=== PATIENT | female | born 1990 | race Caucasian/White ===

== ENCOUNTER 2021-10-12 00:14 | Observation (INO) | payer OTHER, SELFPAY ==
--- NOTE | ~2021-10-12 | CT_ITS ---
EXAMINATION: CT abdomen pelvis w con DATE: 10/12/2021 02:43 INDICATION: Right lower quadrant pain with nausea, vomiting and diarrhea TECHNIQUE: Computed tomography (CT) of the abdomen and pelvis was performed with 100 cc Omnipaque 350 intravenous contrast. The dose-length product was 251.06 mGy-cm. Automated exposure control and iter ative reconstruction technique were employed. COMPARISON: None. FINDINGS: Lung bases unremarkable. Heart size normal. No pleural or pericardial effusion. No signific ant vascular abnormality. No lymphadenopathy. Nonobstructive bowel gas pattern. There is a blind-endi ng tubular structure right lower quadrant measuring up to 1 cm, suspicious although not diagnostic fo r acute appendicitis. There is not significant surrounding periappendiceal inflammation, although easton luation limited due to lack of significant surrounding fat. Correlate clinically. The bladder is dist ended. No acute osseous abnormality. IMPRESSION: 1. Blind-ending tubular structure right lower abdomen measuring up to 1 cm, indeterminate for acute a ppendicitis. Correlate clinically. Reviewed, dictated and finalized at location A. [employer] IMPRESSION: 1. Blind-ending tubular structure right lower abdomen measuring up to 1 cm, ind eterminate for acute appendicitis. Correlate clinically.
[2021-10-12 00:21] VITALS: BP 133/83; PULSE 123; RESP 17; TEMP 36.5; O2SAT 96
[2021-10-12 01:34] LABS: Basophils Absolute Auto 0.1 K/mm3 (0.0-0.1); Basophils Percent Auto 0.4 % (0.2-1.2); Eosinophils Absolute Auto 0.1 K/mm3 (0-0.3); Eosinophils Percent Auto 0.7 % (0-4.4); Hematocrit 39.7 % (37.0-47.0); Hemoglobin 13.8 g/dL (12.0-15.0); Immature Granulocyte Absolute 0.05 K/mm3 (0.00-0.031); Immature Granulocyte Percent A 0.4 % (0-0.5); Lymphocytes Absolute Auto 1.47 K/mm3 (0.9-3.2); Lymphocytes Percent Auto 12.6 % (18.3-44.2); Mean Corpuscular HGB Conc 34.8 g/dl (32-36); Mean Corpuscular Hemoglobin 31.3 pg (26-34); Monocytes Absolute Auto 0.9 K/mm3 (0.1-0.6); Monocytes Percent Auto 7.6 % (2.6-8.5); Neutrophils Absolute Auto 9.1 K/mm3 (1.3-6.7); Neutrophils Percent Auto 78.3 % (45.5-73.1); Platelet Count Result 179 k/mm3 (150-375); Red Blood Count 4.41 M/mm3 (4.2-5.4); Red Cell Distribution Width 11.8 % (11.5-14.5); White Blood Count 11.7 K/mm3 (4.5-10.0)
[2021-10-12 01:45] LABS: Alanine Aminotransferase 26 U/L (4-35); Alkaline Phosphatase 72 U/L (38-126); Anion Gap 6 mmol/L (8-16); Aspartate Amino Transferase 32 U/L (14-36); Bilirubin,Total 0.8 mg/dL (0.2-1.3); Blood Urea Nitrogen 17 mg/dL (7-17); Calcium 9.9 mg/dL (8.4-10.2); Carbon Dioxide 28 mmol/L (22-30); Chloride 100 mmol/L (98-107); Estimated CRCL calculation 81 ml/min; Estimated Glomerular Filt Rate > 60; Glucose 109 mg/dL (65-110); Lipase 101 U/L (23-300); Potassium 3.5 mmol/L (3.4-5.0); Sodium 134 mmol/L (137-145)
[2021-10-12] MEDS: ONDANSETRON INJ 4 MG/2 ML VIAL IV PUSH ×4 (01:49→14:57)
[2021-10-12] MEDS: SODIUM CHLORIDE 0.9% IV 1,000 ML 999 ML IV CONT ×2 (01:49→03:26)
--- NOTE | 2021-10-12 01:52 | ED.ABDPAIN ---
HPI - Abdominal Pain General Chief Complaint: Abdominal Pain Stated Complaint: abd pain, n/v Time Seen by Provider: 10/12/21 01:42 Source: patient and family History of Present Illness HPI narrative: 31-year-old female presented emerge department for evaluation of lower abdominal pain with associated nausea vomiting and diarrhea. Patient states symptoms started approximately 9 PM tonight. Patient denies any prior history of abdominal surgeries. Patient denies any prior history of ovarian cyst. Related Data Home Medications Medication Instructions Recorded Confirmed docosahexaenoic acid [ DHA] 1 tablet PO DAILY 06/10/21 10/12/21 Allergies Allergy/AdvReac Type Severity Reaction Status Date / Time amoxicillin Allergy Severe Hives Verified 10/12/21 01:27 erythromycin base Allergy Severe STOPS Verified 10/12/21 01:27 BREATHING Penicillins Allergy Mild RASH Verified 10/12/21 01:27 Review of Systems Review of Systems: APPEARANCE: Ill-appearing HEAD: normocephalic, atraumatic. EYES: PERRLA/EOMI, conjunctivae clear. NECK: Supple. No adenopathy, no masses. RESPIRATORY: Airway patent, respirations nonlabored. Clear to auscultation bilaterally, no rales, rhonchi, wheezing. CARDIOVASCULAR: Regular rate and rhythm without murmurs rubs or gallops. ABDOMINAL: Right lower quadrant pain MUSCULOSKELETAL: Moves all extremities. Strength/ROM intact, No edema, No calf tenderness. NEURO: Alert. Cranial nerves II through XII intact. SKIN: Warm, dry. Normal Color PSYCHIATRIC: Normal affect/mood. [facility] Past Medical History Medical History (Updated 10/12/21 @ 03:46 by Garry Trejo MD) Encounter to establish care GERD (gastroesophageal reflux disease) Hx of gastric ulcer Rash and nonspecific skin eruption Weight loss Wellness examination Surgical History Surgical History (Updated 06/10/21 @ 15:05 by Roel Becerra CMA) Hx of adenoidectomy Family History Family History Father Hypertension Mother Asthma Sibling Asthma Grandparent Asthma Lung cancer Grandparent Diabetes mellitus Social History Social History (Updated 06/10/21 @ 14:57 by Roel Becerra CMA) Smoking status: Never smoker Alcohol intake: never Drinks per week: 2 Alcohol use details: 1-2 beers per week Substance use: never Spiritual care concerns: No Exam Narrative: APPEARANCE: Ill-appearing HEAD: normocephalic, atraumatic. EYES: PERRLA/EOMI, conjunctivae clear. NOSE: Normal no drainage RESPIRATORY: Airway patent, respirations nonlabored. Clear to auscultation bilaterally, no rales, rhonchi, wheezing. CARDIOVASCULAR: Regular rate and rhythm without murmurs rubs or gallops. ABDOMINAL: Right lower quadrant tenderness to palpation MUSCULOSKELETAL: Moves all extremities. Strength/ROM intact, No edema, No calf tenderness. NEURO: Alert. Cranial nerves II through XII intact. SKIN: Warm, dry. Normal Color Course Course Emergency Course: Surgery was consulted due to the finding of acute appendicitis. Patient was started on antibiotics. Patient and family were updated on the results of the labs and imaging and plan for admission with anticipated surgery. All questions and concerns were addressed. Patient was in no distress at time of admission. Consultations Consultation #1: Dr Vidales was consulted. Dr. Vidales also did request a Zosyn to be administered. Unfortunately patient does have allergies to amoxicillin penicillins and erythromycin. Patient was started on Clinda and gentamicin. Date: 10/12/21 Time: 03:14 Vital Signs Vital signs: Vital Signs Temperature 97.7 F 10/12/21 00:21 Pulse Rate 123 H 10/12/21 00:21 Respiratory Rate 17 10/12/21 00:21 Blood Pressure 133/83 10/12/21 00:21 Pulse Oximetry 96 10/12/21 00:21 Temperature 97.9 F 10/12/21 05:47 Pulse Rate 90 10/12/21 05:47 Respiratory Rate 18 10/12/21 05:47 Blood Pressu
[2021-10-12 01:56] LABS: Add Urine Microscopic? YES; Amorphous Sediment Urine Few; Appearance Urine Cloudy (Clear); Bilirubin Urine Negative (Negative); Blood Urine Negative (Negative); Color Urine Yellow (Yellow); Glucose Urine UA Negative (Negative); Ketones Urine 1+ mg/dL (Negative); Leukocyte Esterase Ur Negative LEU/UL (Negative); Nitrate Urine Negative (Negative); Protein Urine 1+ mg/dL (Negative); Specific Grav Ur 1.018 (1.001-1.035); Urobilinogen Urine Negative mg/dL (<2.0)
[2021-10-12] MEDS: HYDROmorphone HCL INJ (*CRX) 1 MG/ML SYR 0.5 MG IV PUSH ×3 (01:58→08:47)
--- NOTE | 2021-10-12 02:19 | PC.NURSE ---
Patient taken to ct.
[2021-10-12] MEDS: CLINDAMYCIN 900 MG/D5W 50 ML 900 MG/50 ML PIGGYBACK 50 MG IVPB (04:08)
[2021-10-12 04:56] LABS: SARS-CoV-2 RNA PCR Negative
[2021-10-12 05:12] VITALS: BP 107/74; PULSE 97; RESP 18; TEMP 37.1; O2SAT 100
[2021-10-12] MEDS: SODIUM CHLORIDE 0.9% IV 1,000 ML 125 ML IV CONT ×3 (05:24→20:54)
--- NOTE | 2021-10-12 05:26 | ADMGEN ---
This patient, Mayte Garcia, was admitted to 2 Medical Room 261-01. Patient/family oriented to hospital policies and general routines including ID bracelet, bed and alarms, visiting hours, pain management, procedures, bathroom and other care routines, personal items, smoking policy, room service/diet, and visiting hours. Information on how to activate the Rapid Response Team has been discussed. Patient/Family are encouraged to report perceived risks to care and to ask questions if they do not understand what they are told or what they should do.
[2021-10-12 05:46] VITALS: BMI 19.8
[2021-10-12 05:47] VITALS: BP 104/69; PULSE 90; RESP 18; TEMP 36.6; O2SAT 100
--- NOTE | 2021-10-12 10:20 | PM.IMHP ---
H&P: HPI History of Present Illness Date/Time: 10/12/21 09:20 This is a pleasant 31-year-old white female who presented to the emergency department at [place] last evening for evaluation of lower abdominal pain with associated nausea, vomiting. and diarrhea. Patient states symptoms started approximately 9 PM that night. she states that earlier in the day she ate a normal breakfast of been an on a muffin. At lunch she still had an appetite and ate some healthy popcorn. Then immediately after eating her supper around 7 or 8:00 p.m. she began having lower abdominal pain mainly centered at her umbilicus and below that. She had 1 episode of loose stools in the late afternoon and then gradually became more more nauseated through the evening and then decided to come the emergency room around midnight. Patient has a [id number] at home that she donor delivered by normal vaginal delivery and she has not had other abdominal problems. She took her temperature at home that was not running a fever. She also was not run a fever in the ED. further history now is that she has had 3 rounds of Zofran and IV Dilaudid for the pain and it seems to come back after the medicine wears off. She has not had further loose stools since she arrived at the hospital. Patient denies any prior history of abdominal surgeries. Patient denies any prior history of ovarian cyst. Chief Complaint: lower abdominal pain Review of Systems Review of Systems: All systems reviewed & are unremarkable except as noted in HPI and below Constitutional: Constitutional: Reports as per HPI, Denies chills, Denies fever(s) and Reports malaise Eyes: Eyes: Reports no additional eye complaints ENT: Reports Normal hearing present and Denies dizziness Cardiovascular: Cardiovascular: Reports no additional cardiovascular complaints, Denies chest pain and Denies irregular heart rhythm Respiratory: Respiratory: Reports no additional respiratory complaints Gastrointestinal: Gastrointestinal: Reports abdominal pain ( mild, at and below the umbilicus), Denies bloating, Denies heartburn and Reports nausea Genitourinary: Genitourinary: Reports no additional female genitourinary complaints and Denies hematuria Musculoskeletal: Musculoskeletal: Denies back pain Integumentary/Breasts: Skin/Breast: Reports system reviewed and no additional complaints, except as docu Neurologic: Reports Normal hearing present, Denies Abnormal speech present, Denies confusion and Denies dizziness Psychiatric: Psychiatric: Reports no additional psychiatric complaints and Denies confusion Endocrine: Endocrine: Reports no additional endocrine complaints Hematologic/Lymphatic: Hematologic/Lymphatic: Denies easy bleeding and Denies easy bruising Allergic/Immunologic: Allergic/Immunologic: Denies urticaria and Denies lip swelling Comments: penicillin and amoxicillin allergies are reported to patient by mother from a rash when she was 1 to 2 years old. Erythromycin allergy was some shortness of breath and a feeling like her throat was closing at age 10. [facility] Past Medical History Medical History Encounter to establish care GERD (gastroesophageal reflux disease) Hx of gastric ulcer Rash and nonspecific skin eruption Weight loss Wellness examination Surgical History Surgical History Hx of adenoidectomy Family History Family History Father Hypertension Mother Asthma Sibling Asthma Grandparent Asthma Lung cancer Grandparent Diabetes mellitus Social History Social History Smoking status: Never smoker Alcohol intake: never Drinks per week: 2 Alcohol use details: 1-2 beers per week Substance use: never Spiritual care concerns: No Meds Home Medications a
[2021-10-12] MEDS: PANTOPRAZOLE SODIUM IV 40 MG VIAL IV PUSH ×2 (11:11→20:54)
[2021-10-12 12:36] LABS: Basophils Percent Auto 0.2 % (0.2-1.2); Hematocrit 36.2 % (37.0-47.0); Hemoglobin 12.2 g/dL (12.0-15.0); Immature Granulocyte Absolute 0.06 K/mm3 (0.00-0.031); Immature Granulocyte Percent A 0.5 % (0-0.5); Lymphocytes Absolute Auto 0.97 K/mm3 (0.9-3.2); Lymphocytes Percent Auto 7.7 % (18.3-44.2); Mean Corpuscular HGB Conc 33.7 g/dl (32-36); Mean Corpuscular Hemoglobin 30.7 pg (26-34); Mean Corpuscular Volume 91.2 fl (80-100); Monocytes Absolute Auto 1.2 K/mm3 (0.1-0.6); Monocytes Percent Auto 9.2 % (2.6-8.5); Neutrophils Absolute Auto 10.3 K/mm3 (1.3-6.7); Neutrophils Percent Auto 82.4 % (45.5-73.1); Platelet Count Result 167 k/mm3 (150-375); Red Blood Count 3.97 M/mm3 (4.2-5.4); Red Cell Distribution Width 11.7 % (11.5-14.5); White Blood Count 12.5 K/mm3 (4.5-10.0)
[2021-10-12] MEDS: MORPHINE SULFATE (*CRX) 2 MG/ML INJ IV PUSH ×3 (12:42→22:25)
[2021-10-12 12:56] LABS: CRP 1.9 mg/dL (<1.0)
[2021-10-12] MEDS: metroNIDAZOLE 500 MG/ISO 100ML 500 MG/100 ML BAG 100 MG IVPB ×2 (13:16→20:59)
[2021-10-12 14:00] VITALS: BP 124/74; PULSE 110; RESP 20; TEMP 36.7; O2SAT 100
[2021-10-12 21:22] VITALS: BP 116/55; PULSE 108; RESP 16; TEMP 36.9; O2SAT 99
[2021-10-13 04:44] VITALS: BP 100/54; PULSE 84; RESP 16; TEMP 36.7; O2SAT 98
[2021-10-13] MEDS: MORPHINE SULFATE (*CRX) 2 MG/ML INJ IV PUSH (04:59)
[2021-10-13] MEDS: metroNIDAZOLE 500 MG/ISO 100ML 500 MG/100 ML BAG 100 MG IVPB (05:00)
[2021-10-13] MEDS: SODIUM CHLORIDE 0.9% IV 1,000 ML 125 ML IV CONT (05:03)
[2021-10-13 05:47] LABS: Basophils Percent Auto 0.1 % (0.2-1.2); Hematocrit 34.7 % (37.0-47.0); Hemoglobin 11.7 g/dL (12.0-15.0); Immature Granulocyte Absolute 0.09 K/mm3 (0.00-0.031); Immature Granulocyte Percent A 0.7 % (0-0.5); Lymphocytes Absolute Auto 0.88 K/mm3 (0.9-3.2); Lymphocytes Percent Auto 6.5 % (18.3-44.2); Mean Corpuscular HGB Conc 33.7 g/dl (32-36); Mean Corpuscular Hemoglobin 31.2 pg (26-34); Mean Corpuscular Volume 92.5 fl (80-100); Mean Platelet Volume 9.5 fl (7.4-10.4); Monocytes Absolute Auto 1.2 K/mm3 (0.1-0.6); Neutrophils Absolute Auto 11.4 K/mm3 (1.3-6.7); Neutrophils Percent Auto 83.7 % (45.5-73.1); Platelet Count Result 135 k/mm3 (150-375); Red Blood Count 3.75 M/mm3 (4.2-5.4); Red Cell Distribution Width 11.9 % (11.5-14.5); White Blood Count 13.6 K/mm3 (4.5-10.0)
[2021-10-13 07:15] LABS: Anion Gap 8 mmol/L (8-16); Blood Urea Nitrogen 11 mg/dL (7-17); Calcium 8.3 mg/dL (8.4-10.2); Carbon Dioxide 18 mmol/L (22-30); Chloride 105 mmol/L (98-107); Estimated CRCL calculation 93 ml/min; Estimated Glomerular Filt Rate > 60; Glucose 72 mg/dL (65-110); Potassium 3.3 mmol/L (3.4-5.0); Sodium 131 mmol/L (137-145)
[2021-10-13] MEDS: PANTOPRAZOLE SODIUM IV 40 MG VIAL IV PUSH (08:35)
[2021-10-13] MEDS: ACETAMINOPHEN 500 MG TABLET 1000 MG PO (08:50)
[2021-10-13] MEDS: POTASSIUM CHLORIDE INJ 40 MEQ in SODIUM CHLORIDE 0.9% IV 500 ML 130 MEQ IVPB (10:46)
[2021-10-13 12:33] VITALS: BP 101/60; PULSE 93; RESP 18; TEMP 36.8; O2SAT 100
[2021-10-13] MEDS: metroNIDAZOLE 250 MG TABLET 500 MG PO (13:42)
[2021-10-13 14:25] VITALS: BP 100/64; PULSE 100; RESP 16; TEMP 36.3; O2SAT 100
--- NOTE | 2021-10-13 14:53 | PM.DS ---
DS: Admitting Diagnosis Discharge Date Acute uncomplicated appendicitis (suspected but not confirmed) Admitting Diagnosis acute uncomplicated appendicitis (suspected but not confirmed) DS: Discharge Diagnosis Discharge Diagnosis (1) Acute appendicitis: Onset Date: ~10/2021 Qualifiers: Acute appendicitis type: unspecified acute appendicitis type Qualified Code(s): K35.80 - Unspecified acute appendicitis Code(s): K35.80 - Unspecified acute appendicitis Status: Acute Assessment and Plan: patient and was observed for a slightly longer than 24 hours. She received IV antibiotics and improved. We will treat her with oral antibiotics and follow up as an outpatient. She knows there is about a 30% failure rate in this but that many patients do well on antibiotics and never need their appendix out. Will plan to see year on October 22 a Thursday in the office for follow-up she will be finished her antibiotic course at that time. She knows to call the office if she begins running a fever consistently greater than 100.5 F and or begins having increased abdominal pain. (2) GERD (gastroesophageal reflux disease): Onset Date: Unknown Code(s): K21.9 - Gastro-esophageal reflux disease without esophagitis Status: Acute Assessment and Plan: Mild Patient will resume standard therapy for this at home. In order to keep this from being a concern when she was having some nausea she received IV Protonix during her hospital stay. DS: Summary Hospital Course Reason for hospitalization: lower abdominal pain with suspected acute uncomplicated appendicitis Hospital Course: patient was seen in the emergency room with lower midline and right lower quadrant abdominal pain. CT scan was questionable for possible early appendicitis. She was in for observed for 24 hours on IV antibiotics. I discussed with her the options of surgical intervention versus antibiotic treatment. See progress notes. Patient decided to continue treatment with antibiotics and did well. On the day of discharge she was tolerating a soft diet. She was taking only Tylenol for main pain. She was improved and was not nauseated any longer. She received several doses of Levaquin because she was allergic to penicillin and amoxicillin. I also gave her metronidazole and she will be going home on a combination of oral Levaquin and metronidazole for 10 days. Status at Discharge Cognitive/behavioral status at discharge: Normal Functional status at discharge: independent ambulation Overall status at discharge: patient is back to baseline Time Spent with Patient Time attestation: Total time spent providing and/or coordinating discharge services: Time spent: Less than 30 minutes Exam Const: General: cooperative, comfortable, alert and awake Orientation/consciousness: patient oriented x3 HENMT: Head: normal to inspection Mouth: Yes moist mucous membranes Eyes: Sclera: sclerae normal Pupils: Equal, round and reactive pupils present Neck: Neck: normal visual inspection and no JVD Chest: Chest palpation & inspection: normal inspection of the chest Resp: Effort & Inspection: normal respiratory effort Auscultation: clear to auscultation bilaterally Cardio: Jugular venous distension: no JVD Rate: regular rate GI: GI Palp: Yes abdominal tenderness ( mild in the suprapubic area) and Yes Soft to palpation Auscultation: normal bowel sounds Neuro: General: patient oriented x3 Cranial nerves: Yes Equal, round and reactive pupils present DS: Data Data Completed and Pending Labs on day of discharge: Labs from last 24 hours 10/13/21 10/13/21 04:54 04:54 WBC 13.6 H RBC 3.75 L Hgb 11.7 L Hct 34.7 L MCV 92.5 MCH 31.2 MCHC 33.7 RDW 11.9 Plt Count 135 L MPV 9.5 Immature Gran % (Auto) 0.7 H Neut % (Auto) 83.7 H Lymph % (Auto) 6.5 L [place] % (Auto) 9.0 H Eos % (Auto) 0.0 Baso % (Auto) 0.1 L
== END 2021-10-13 17:25 | disposition home or self-care (01) ==
LOC: ANHED 03:46 → ANH2MED 04:05
PROVIDERS: Admitting Provider Surgery; Emergency Provider Emergency Medicine; PCP Family Medicine; Visit Provider Surgery
DX: K38.8 Other specified diseases of appendix (principal); R10.31 Right lower quadrant pain; K21.9 Gastro-esophageal reflux disease without esophagitis; R11.2 Nausea with vomiting, unspecified; R19.7 Diarrhea, unspecified; Z88.0 Allergy status to penicillin; Z20.822 Contact with and (suspected) exposure to COVID-19
CPT/HCPCS: 36415; 74177; 80048; 80053; 81001; 81025; 83690; 85025; 86140; 96361; 96365; 96366; 96367; 96375; 96376; 99285; A9270; C9113; C9803; G0378; J1170; J1580; J1956; J2270; J2405; J3480; J7030; J7040; Q9967; U0003; U0005

== ENCOUNTER → 2021-10-17 11:42 | Outpatient (CLI) | payer OTHER, SELFPAY ==
--- NOTE | ~2021-10-17 | XR_ITS ---
XR hand LT 2V DATE: 10/17/2021 11:58 INDICATION: Localized swelling, left upper limb TECHNIQUE: 3 views COMPARISON: None FINDINGS: No fracture, dislocation, periosteal reaction or bone destruction, radiopaque soft tissue f oreign body, subcutaneous emphysema or apparent mass. IMPRESSION: Negative Reviewed, dictated and finalized at location A. [facility] IMPRESSION: Negative
== END ==
PROVIDERS: PCP Family Medicine; Visit Provider Nurse Practitioner Family
DX: R22.32 Localized swelling, mass and lump, left upper limb (principal)
CPT/HCPCS: 73120

== ENCOUNTER 2023-05-23 10:53 | Emergency (ER) | payer BC, SELFPAY ==
--- NOTE | ~2023-05-23 | XR_ITS ---
XR foot LT min 3V DATE: 05/23/2023 11:12 INDICATION: Lateral foot pain and swelling after left foot rolling injury TECHNIQUE: 4 views COMPARISON: None FINDINGS: There is a transverse nondisplaced intra-articular fracture of the base of the fifth metata rsal bone. No other fracture or dislocation, periosteal reaction or bone destruction. IMPRESSION: Transverse intra-articular nondisplaced fracture of the base of the fifth metatarsal bone Reviewed, dictated and finalized at location A.
--- NOTE | 2023-05-23 10:58 | ED.EXTPRO ---
HPI - Extremity Problem General Chief complaint: Extremity Injury, Lower Stated complaint: swollen left foot Time Seen by Provider: 05/23/23 10:57 Source: patient Mode of arrival: ambulatory Limitations: no limitations History of Present Illness HPI Narrative: Mayte is a [age]-year-old female patient presenting to the clinic today with complaints of a swollen left foot /pain x 1 days. She reports she was getting out of bed yesterday and did knows that her foot was asleep and step down and rolled her foot. Is having pain to the lateral left foot with bruising and redness. Related Data Allergies Allergy/AdvReac Type Severity Reaction Status Date / Time amoxicillin Allergy Severe Hives Verified 05/23/23 11:01 erythromycin base Allergy Severe STOPS Verified 05/23/23 11:01 BREATHING Penicillins Allergy Mild RASH Verified 05/23/23 11:01 Review of Systems Review of Systems: Pertinent positives per HPI. Patient denies any fever, chills, rash, headache, visual changes, dizziness, cough, runny nose, sore throat, shortness of breath, chest pain, palpitations, nausea, vomiting, diarrhea, constipation, abdominal pain, or any urinary issues. [facility] Past Medical History Medical History Encounter to establish care GERD (gastroesophageal reflux disease) (Unknown) Hx of gastric ulcer Mass of left hand Rash and nonspecific skin eruption Seasonal allergies Weight loss Wellness examination Surgical History Surgical History Hx of adenoidectomy Family History Family History Father Hypertension Mother Asthma Sibling Asthma Grandparent Asthma Lung cancer Grandparent Diabetes mellitus Social History Social History Smoking status: Never smoker Alcohol intake: never Drinks per week: 2 Alcohol use details: 1-2 beers per week Substance use: never Lack of Transportation: No Lack of Food: Never True Current Housing: I Have Housing Concerned About Future Housing: No Difficulty Paying Gas/Electric Bills: No Difficulty Paying for Meds: No Currently Unemployed: No Education: Bachelor's Degree Difficulty w/ Childcare or Family Care: No Spiritual care concerns: No Comments At the time of my signature, I reviewed and agree with the nursing past medical, surgical, social, and family history. There is no relevant family history pertinent to the patient complaint. Exam Narrative: General: Well-developed, well nourished, in no apparent distress Head: Normocephalic, atraumatic. Cardio: Regular rate and rhythm, s1 and s2 normal, no murmur appreciated. Resp: Clear to auscultation bilaterally, no rhonchi, rales, wheezing or rubs. Musculoskeletal: No deformity, tender to palpation over the lateral 5th metatarsal with localized bruising, redness, and swelling, no tenderness to palpation over the ankle, grossly normal range of motion, muscle strength strong and equal, peripheral pulse strong, no cyanosis, normal gait and station Course Course Emergency Course: Portions of this record may have been created with voice recognition software. Level of Care: Express Care Visit Vital Signs Vital signs: Vital signs reviewed MDM - Extremity (Nontraumatic) MDM Narrative Medical decision making narrative: At the time of visit patient is resting comfortably on exam table. X-ray of the left foot was performed and shows a transverse intra-articular fracture of the base of the left 5th metatarsal. Postop shoe was applied. Supportive measures were discussed with the patient and she voiced understanding the discharge instructions and agrees to treatment plan. Differential Diagnosis Differential diagnosis: Likely other (Metatarsal fracture, foot sprain, contusion, soft ti
[2023-05-23 11:02] VITALS: BP 138/78; PULSE 67; RESP 18; TEMP 36.6; O2SAT 98
== END 2023-05-23 11:36 | disposition home or self-care (01) ==
PROVIDERS: Emergency Provider Nurse Practitioner Family; PCP Family Medicine
DX: S92.352A Displaced fracture of fifth metatarsal bone, left foot, initial encounter for closed fracture (principal); X50.9XXA Other and unspecified overexertion or strenuous movements or postures, initial encounter; K21.9 Gastro-esophageal reflux disease without esophagitis
CPT/HCPCS: 73630; 99214; G0463

== ENCOUNTER → 2023-06-22 12:07 | Outpatient (CLI) | payer BC, SELFPAY ==
--- NOTE | ~2023-06-22 | XR_ITS ---
XR foot LT min 3V DATE: 06/22/2023 12:25 INDICATION: Metatarsal fracture TECHNIQUE: 4 views COMPARISON: 05/23/2023 left foot FINDINGS: The fracture line at the nondisplaced fracture of the base of the fifth metatarsal bone is less lucent and apparent, without interval change in position or alignment at the nondisplaced fractu re. IMPRESSION: Healing nondisplaced fracture of base of fifth metatarsal Reviewed, dictated and finalized at location B.
== END ==
PROVIDERS: PCP Family Medicine; Visit Provider Nurse Practitioner Family
DX: S92.355D Nondisplaced fracture of fifth metatarsal bone, left foot, subsequent encounter for fracture with routine healing (principal)
CPT/HCPCS: 73630

== ENCOUNTER 2025-05-05 08:54 | Emergency (ER) | payer OTHER, SELFPAY ==
[2025-05-05 09:06] VITALS: BP 116/67; PULSE 85; RESP 18; TEMP 36.2; O2SAT 100
--- OUTSIDE RECORDS SUMMARY | 2025-05-05 09:11 | XMS_ITS | Encounter Summary ---
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 Role Phone Unknown, Chantal Primary Care Provider Unavail able Kanika Douglas MD Unavailable Valerie Mckeon MD Unavailable Encounter Details Date Type Department Care Team (Late st Contact Info) Description 04/28/2025 Results Follow-Up [facility] [place] [id number] [place] [address] [place] [address] CBC with auto differential, RPR Titer Blood, GTT 50gm 1hr gestational screen, Additional followed-up results: 3 Social History Tobacco Use Types Packs/Day Years Used Date Smoking Tobacco: Never Passive Smoke Exposure: Never Smokeless Tobacco: Never Estimated Date of Delivery Comme nts Yes 08/02/2025 Based on last me nstrual period of 10/26/2024 (Exact Date) Sex and Gender Information Value Date Recorded Sex Assigned at Not on file Legal Sex Female 4:22 PM [employer]SEHOLD [employer]CH[employer]IC Gender Identity Female 02/26/2021 8:50 AM CDT Sexual Orientation Not on file documented as of this encounter Plan of Treatment Not on file documented as of this encounter Visit Diagnoses Not on filedocumented in this encounter Care Teams 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
--- OUTSIDE RECORDS SUMMARY | 2025-05-05 09:11 | XMS_ITS | Clinical Summary ---
Author Organization [facility] Address [address] [facility] [address] [place] [address] Phone Care Team Providers Care Computer Applications Developer Name Role Phone Unknown, Notinfile Primary Care Provider Unavail able Kanika Douglas MD Unavailable Valerie Mckeon MD Unavailable Allergies Active Allergy Reactions Criticality Noted Date Comments Erythromycin Shortness of breath High 04/25/2020 Penicillins Rash Medium 04/25/2020 Medications vit-iron fum-folic ac 28 mg iron- 800 mcg tablet Take 1 tablet by mouth daily Active famotidine (PEPCID ORAL) Take by mouth as needed Active pantoprazole DR (Protonix) 40 mg EC tablet Take 1 tablet (40 mg total) by mouth daily 90 tablet 1 04/06/2025 Active Active Problems Problem Noted Date Diagnosed Date Abnormal Pap smear of cervix 02/28/2021 Overview (02/28/2021): 08/2020 ASCUS +HrHPV neg 18 02/2019 ASCUs +HrHPV neg / Estimated Date of Delivery Comme nts Yes 08/02/2025 Based on last me nstrual period of 10/26/2024 (Exact Date) Encounters Date Type Department Care Team Description 04/28/2025 Results Follow-Up [facility] [id number] [place] [phone] Valerie Mckeon MD CBC with auto differential, RPR Titer Blood, GTT 50gm 1hr gestational screen, Additional followed-up results: 3 04/13/2025 10:45 AM CDT Office Visit [facility] [place] [phone] Valerie Mckeon MD care, subsequent , third trimester (Primary Dx); 24 weeks gestation of 04/06/2025 11:25 AM CDT Office Visit [facility] [place] [phone] Neena Camejo NP 23 weeks gestation of (Primary Dx); Encounter for follow-up ultrasound of anatomy; Subchorionic hematoma in first trimester, fetus 1 of multiple gestation 04/06/2025 10:55 AM CDT Ancillary Procedure [facility] [place] [phone] Suspected damage to fetus from disease in mother, antepartum condition, single or unspecified fetus 03/18/2025 Telephone [facility] [place] [phone] Lisa Parra DO 03/14/2025 10:25 AM CDT Ancillary Procedure [facility] [place] [phone] Screening, , for anatomic survey 02/14/2025 9:40 AM CDT Office Visit [facility] [place] [phone] Neena Camejo NP 15 weeks gestation of (Primary Dx); Hyperemesis arising during ; Subchorionic hematoma in first trimester, fetus 1 of multiple gestation from Last 3 Months Medical History Medical History Date Comments Kidney infection 2009 hospitalized 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 02/2019&08/26 ASCUS +HRHPV,neg 16/18;02/25 Pap neg+HRHPV, neg 16/18 Family History Medical History Relation Name Comments Breast cancer Neg Hx Colon cancer Neg Hx Ovarian cancer Neg Hx Social History Tobacco Use Types Packs/Day Years Used Date Smoking Tobacco: Never Passive Smoke Exposure: Never Smokeless Tobacco: Never Tobacco Cessation:Counseling Given: Not Answered Estimated Date of Delivery Comme nts Yes 08/02/2025 Based on last me nstrual period of 10/26/2024 (Exact Date) Sex and Gender Information Value Date Recorded Sex Assigned at Not on file Legal Sex 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 Gender Identity Female 02/26/2021 8:50 AM CDT Sexual Orientation Not on file Obstetrics History Para Term AB IAB SAB Ectopic Multiple Livin g Live Births 3 2 2 2 2 Date Outcome GA Total Labor Labor/2nd/3rd Weight Sex Type Anes PTL Emily A1 A5 Name Clin 2019 Term 41w 0d 9h 23m 7h 38m/1h 40m/0h 05m 3.66 kg (8 lb 1.1 oz) F Vag-S pont None Livin g 8 9 VINCENT N,GIR L1SAM ZAC Mckeon MD Complications:None Delivery Location:[facility] ([facility] ) 2022 Term 41w 1d 0h 22m 0h 18m/0h 04m 2.93 kg (6 lb 7.4 oz) F Vag-S pont Epidur al Livin g 9 9 IVNCENT N,GIR L1SAM ZAC Mckeon MD Complications:None Delivery Location:[facility] ([facility] ) [facility] 8-[facility]lbs. Did great! natural. [facility].1[facility], [facility]. GBS pos- Ancef. No lac. Epidural. Summary Episode Dates Number of Fetuses Estimated Date of Delivery 12/15/2024 - Present (05/05/2025) 08/02/2025 (set by Neena Camejo NP on 12/15/2024 based on Last Menstrual Period on 10/26/2024 (Exact Date)) Dating Summary Based On MELISSA GA Diff Last Menstrual Period on 10/26/2024 (Exact Date) 08/02/2025 Working Vitals Pregravid Weight Height TWG (As of 05/05/2025) Pregrav id BMI 170.2 cm (5' 7) Notes Progress Notes - Office Visi t - 04/13/2025 - GA:24w1d 04/13/2025 - 24w1d - Valerie Mckeon MD -IUP@ 24.w1d, here alone today - 1GTT/CBC/RPR/ferritin by next appt. Questions/instructions reviewed. Reviewed she does not need to be fasting, however, would not consume high sugar item within one hour of test. - Rhogam next appt. - growth was 22% then 16%. Growth scan next month. Will continue to monitor- if decreases, will refer to M. - Peds aware. Progress Notes - Office Visi t - 04/06/2025 - GA:23w1d 04/06/2025 - 23w1d - Neena Camejo NP -IUP@23w1d, here alone today -fu anatomy scan for suboptimal views of cord insertion, kidneys, spine and genitals. Reviewed fu anatomy scan from today, views completed, anatomy reassuring - No vaginal bleeding/pelvic pain. - GERD- pepcid 40mg daily, still bothersome, protonix 40mg erx - declines cffdna and MS4. -Has Ped RTO 1 week for visit/sooner prn Cosigned by Valerie Mckeon MD at 04/06/2025 6:33 PM CDT Progress Notes - Office Visi t - 02/14/2025 - GA:15w6d 02/14/2025 - 15w6d - Neena Camejo NP -IUP@15w6d, here alone today -feeling better overall. Energy and nausea improving. Reviewed 2nd trimester activity restrictions and movement. - BRITTANY improving at last us. No vaginal bleeding/pelvic pain. - GERD- pepcid 40mg daily, stable - declines cffdna and MS4. -Has Ped RTO 4 weeks/sooner prn Progress Notes - Office Visi t - 01/12/2025 - GA:11w1d 01/12/2025 - 11w1d - Valerie Mckeon MD -IUP@11w1d, here alone today -feeling better overall. - BRITTANY improving. Ultrasound reviewed. No vaginal bleeding/pelvic pain. - GERD- pepcid 40mg daily - Energy improving. - declines cffdna. Medical student, Hadley Diaz, was present during visit after consent of observation and assistance obtained from patient prior to visit. Progress Notes - Office Visi t - 12/21/2024 - GA:8w0d 12/21/2024 - 8w0d - Neena Camejo NP Pt here for visit. 8w0d, here with H, RJ -mild nausea. No bleeding or pelvic pain -declining genetic testing - labs reviewed, Rubella Equivocal, recommend MMR booster -reviewed ultrasound from today, pt had 2 menses since delivery prior to conception. Roughly 1 month apart. Single IUP 7w5d by CRL, CA 148bpm, small SCB 1.4x1.6x1.7cm, recommend fu to check for resoluation in 4 weeks RTO 4 week/sooner prn Cosigned by Valerie Mckeon MD at 12/23/2024 8:34 AM CDT Progress Notes - Office Visi t - 12/15/2024 - GA:7w1d 12/15/2024 - 7w1d Neena Merrill NP Initial OB Visit Subjective: Mayte Garcia is a 34 y.o., at 7w1d, based on LMP, who presents for initial visit. Her obstetrical history is significant for in 06/2020, at 41 weeks, spontaneous labor, 8lb 1oz at , healthy girl, no complications. 05/14/2023 at 41.1 weeks, MIL for postdates, girl, 6lb 7oz, healthy. Past history fully reviewed. She reports mild nausea, no bleeding or pelvic pain. No medical illnesses. healthy. Patient and both of mixed [place] descent. No family history of defects or chromosomal abnormalities. Fully vaccinated for covid, encouraged booster. Reviewed zika precautions. No cats. No hx genital herpes in patient or partner. Hx of abnormal paps, last pap 07/2024 negative OB History 2 Para 2 Term 2 AB Living 2 SAB IAB Ectopic Multiple Live Births 2 # Outcome Date GA Labor/2nd Weight Sex Type Anes PTL Lv A1 A5 1 Term 07/06/20 41w0d 7h 38m / 1h 40m 3.66 kg (8 lb 1.1 oz) F Vag-Spont None Living 8 9 Name: GABBY GARCIA Location: Other Delivering Clinician: Valerie Mckeon MD 2 Term 05/14/23 41w1d / 0h 18m 2.93 kg (6 lb 7.4 oz) F Vag-Spont Epidural Living 9 9 Name: GABBY GARCIA Location: Other Delivering Clinician: Valerie Mckeon MD Obstetric Comments 07/06/20 SVDFallonf HK@41wks, 8-1lbs. Did great! natural. 05/14/23 SVDChanningf HK@41.1wks, MIL. GBS pos- Ancef. No lac. Epidural. Past medical, surgical, and SERVICE DELIVERY DIRECTOR history fully reviewed. REVIEW OF SYSTEMS: Review of systems negative Objective: General: Well appearing, No pain or distress, well nourished Neck: Supple Respiratory: respirations unlabored Gastrointestinal: soft, non-tender abdomen, no masses palpable EGBUS: no lesions Vagina: no lesions, normal appearing discharge Uterus: non tender, no masses Adnexa: non tender, no masses bilaterally Extremities: no cyanosis or clubbing or edema Musculoskeletal: no obvious joint deformities Skin: no obvious rash or bruising Psychiatric: normal affect Neurologic: awake/alert, no focal deficits A cottage master was offered for this sensitive examination, but the patient requested that a cottage master not be present. Assessment: Patient is a 34 y.o., , 7w1d by LMP pt 1-2 times per day, has only had 2 menses since delivery prior to conception, roughly 1 month apart Problem list reviewed and updated: Problem List No episode was linked to this visit. Plan: -hx abnormal paps, last pap 07/2024, repeat pap today -urine test positive -Continue vitamin with DHA - Labs today -Discussed genetic testing - patient will consider -Role of ultrasound in discussed. survey in 1 week -Reviewed exercise, diet, medications, precautions. Follow up in 1 week. Neena Camejo NP 12/15/2024 My total encounter time on 12/15/2024 was 45 minutes which was spent in the activities documented in the note. This includes time spent prior to the visit and after the visit in direct care of the patient. This time does not include time spent in any separately reportable services. Cosigned by Valerie Mckeon MD at 12/16/2024 4:56 PM CDT Last Filed Vital Signs Vital Sign Reading Time Taken Comments Blood Pressure 112/72 04/13/2025 10:45 AM CDT Pulse - - Temperature 36.5 C (97.7 F) 04/25/2020 3:39 PM CDT Respiratory Rate - - Oxygen Saturation - - Inhaled Oxygen Concentration - - Weight 67.5 kg (148 lb 12.8 oz) 025 10:45 AM CDT Height 170.2 cm (5' 7) 04/13/2025 10:4 5 AM CDT Body Mass Index 23.31 04/13/2025 10:45 AM CDT Plan of Treatment Health Maintenance Due Date Last Done Comments Depression Screening 1990 Varicella Vaccines (1 of 2 - 13+ 2-dose series) 2003 Hepatitis B Screening 2008 HPV Vaccines (1 - 3-dose SCDM series) 2017 Influenza Vaccine (#1) 2025 06/13/2020, 2019 Regular Well Visit/Exam 18-64 07/04/2025 07/04/2024, 08/22/2021 Cervical Cancer Screening 12/15/20252024, 07/04/2024, 07/02/2023, Additional history exists DTaP/Tdap/Td Vaccine (3 - Td or Tdap) 03/12/2033 03/12/2023, 05/16/2020 Hepatitis C Screening Completed 12/15/2024, 023 Pneumococcal vaccine <65 Aged Out No longer eligible based on patient's age to complete this topic Procedures Procedure Name Priority Date/Time Associated Diagnosis Comments FERRITIN Routine 04/26/2025 9:34 AM CDT care, subsequent , third trimester ABO/RH Routine 04/26/2025 9:34 AM CDT care, subsequent , third trimester ANTIBODY SCREEN Routine 04/26/2025 9:34 AM CDT care, subsequent , third trimester GTT 50GM 1HR GESTATIONAL SCREEN Routine 04/26/2025 9:34 AM CDT care, subsequent , third trimester CBC WITH AUTO DIFFERENTIAL Routine 04/26/2025 9:34 AM CDT care, subsequent , third trimester RPR TITER Routine 04/26/2025 9:34 AM CDT care, subsequent , third trimester POCT URINALYSIS DIPSTICK Routine 04/13/2025 11:02 AM CDT care, subsequent , third trimester POCT URINALYSIS DIPSTICK Routine 04/06/2025 11:42 AM CDT 23 weeks gestation of US OB FOLLOW UP Schedule Routine, Read Routine (OP Routine) 04/06/2025 10:51 AM CDT Suspected damage to fetus from disease in mother, antepartum condition, single or unspecified fetus US OB DETAIL ANATOMY SINGLE OR FIRST GESTATION Schedule Routine, Read Routine (OP Routine) 03/14/2025 10:22 AM CDT Screening, , for anatomic survey POCT URINALYSIS DIPSTICK Routine 02/14/2025 9:47 AM CDT 15 weeks gestation of THINPREP IMAGING PAP AND HPV MRNA E6/E7 REFLEX HPV 16,18/45 Routine 12/15/2024 3:32 PM CDT Hyperemesis arising during 7 weeks gestation of HEPATITIS C ANTIBODY Routine 12/15/2024 3:14 PM CDT Hyperemesis arising during 7 weeks gestation of from Last 3 Months or Most Recently Relevant to Health Maintenance Results * GTT 50gm 1hr gestational screen (04/26/2025 9:34 AM CDT) Glucose, gestational screen, pl 90 <140 mg/dL [facility] Blood 04/26/2025 9:34 AM CDT 04/26/2025 9:36 AM CDT Valerie Mckeon MD LAB BLOOD ORDERABLES Khushboo l Result [facility] [address] [place] [address] * RPR Titer Blood (04/26/2025 9:34 AM CDT) RPR NON-REACTI VE NON-REACTI VE [facility] Comment: No laboratory evidence of syphilis. If recent exposure is suspected, submit a new sample in 2-4 weeks. Blood 04/26/2025 9:34 AM CDT 04/26/2025 9:36 AM CDT us Valerie Mckeon MD LAB MICROBIOLOGY - GENERA L ORDERABLES Final Result [facility] [address] [phone] * (ABNORMAL) CBC with auto differential (04/26/2025 9:34 AM CDT) WBC 8.7 3.8 - 10.8 Thousand/u L [facility] RBC, POC 3.65(L) 3.80 - 5.10 Million/uL [facility] Hgb 12.2 11.7 - 15.5 g/dL [facility] Hct 36.5 35.0 - 45.0 % [facility] MCV 100.0 80.0 - 100.0 fL [facility] MCH 33.4(H) 27.0 - 33.0 pg [facility] MCHC 33.4 32.0 - 36.0 g/dL [facility] Comment: For adults, a slight decrease in the calculated MCHC value (in the range of 30 to 32 g/dL) is most likely not clinically significant; however, it should be interpreted with caution in correlation with other red cell parameters and the patient's clinical condition. Rdw 12.6 11.0 - 15.0 % [facility] Platelets 201 140 - 400 Thousand/u L [facility] MPV 9.1 7.5 - 12.5 fL [facility] Neutrophils, abs 5,933 1,500 - 7,800 cells/uL [facility] Lymphocytes, abs 2,071 850 - 3,900 cells/uL [facility] Monocyte abs 479 200 - 950 cells/uL [facility] Eosinophils, abs 174 15 - 500 cells/uL [facility] Basophils, abs 44 0 - 200 cells/uL [facility] Neutrophils 68.2 % [facility] Lymphocyte pct 23.8 % [facility] Monocytes 5.5 % [facility] Eosinophils 2.0 % [facility] Basophils 0.5 % [facility] Blood 04/26/2025 9:34 AM CDT 04/26/2025 9:36 AM CDT Valerie Mckeon MD LAB BLOOD ORDERABLES Khushboo l Result Performing Organization Address [facility] de Phone Number [facility] [address] [place] [address] * ABO/Rh (04/26/2025 9:34 AM CDT) Pathologist [facility] ABO typing O [facility] Rho(D) typing RH(D) NEGATIVE [facility] Comment: For additional information, please refer to http://education.EyeScience/faq/YMH843 (This link is being provided for informational/ educational purposes only.) Blood 04/26/2025 9:34 AM CDT 04/26/2025 9:36 AM CDT Valerie Mckeon MD LAB BLOOD BANK TEST ORDER JAIME Final Result Performing Organization Address [facility] de Phone Number [facility]ST [facility] [address] [place] [address] * Antibody screen (04/26/2025 9:34 AM CDT) Pathologist [facility] Antibody screen NO ANTIBODIES DETECTED [facility] Comment: Reference range No antibodies detected This assay is a screening test for the detection of red blood cell antibodies. The test is not to be used for pretransfusion screening or for the medical management of an alloimmunized . Blood 04/26/2025 9:3 4 AM CDT 04/26/2025 9:36 AM CDT Valerie Mckeon MD LAB BLOOD BANK TEST ORDER JAIME Final Result Performing Organization Address [facility] de Phone Number [facility] [address] [place] [address] * (ABNORMAL) Ferritin (04/26/2025 9:34 AM CDT) Pathologist [facility] Ferritin 13(L) 16 - 154 ng/mL [email or web address] Blood 04/26/2025 9:34 AM CDT 04/26/2025 9:36 AM CDT Valerie Mckeon MD LAB BLOOD ORDERABLES Khushboo l Result Performing Organization Address City/State/[facility] Co de Phone Number [facility] [address] [place] [address] * (ABNORMAL) POCT urinalysis dipstick (04/13/2025 11:02 AM CDT) Pathologist [facility] Color, Urine, POC Yellow Clarity, ur, POC Clear Clear Glucose, ur, POC Negative Negative Ketones, ur, POC Negative Negative Blood, ur, POC Negative Negative Protein, ur, POC Trace(A) Negative Lot Number [id number] Urine 04/13/2025 11:0 2 AM CDT Valerie Mckeon MD POINT OF CARE TEST ORDERA BLES Final Result * POCT urinalysis dipstick (04/06/2025 11:42 AM CDT) Pathologist [facility] Glucose, ur, POC Negative Negative Ketones, ur, POC Negative Negative Blood, ur, POC Negative Negative Protein, ur, POC Negative Negative Lot Number [id number] Urine 04/06/2025 11:4 2 AM CDT Neena Camejo NP POINT OF CARE TEST ORDE RABLES Final Result * US Ob Follow Up (04/06/2025 10:51 AM CDT) Fetus# Fetus1 VIEWPOINT Estimated Weight 503 g&grams VIEWPOINT Placenta Details posterior VIEWPOINT Presentation Variable VIEWPOINT Anatomical Region Laterality Modality Abdomen N/A Ultrasound 04/06/2025 11:0 4 AM CDT Impressions 04/06/2025 1:39 PM CDT Interval growth is appropriate. No anomalies visualized. Narrative Procedure Note Lisa Parra DO - 04/06/2025 IMPRESSION: Interval growth is appropriate. No anomalies visualized. us Lisa Parra IMG OB US PROCEDURES Fi nal Result * US Ob Detail Anatomy Single Or First Gestation (03/14/2025 10:22 AM CDT) Fetus# Fetus1 VIEWPOINT Estimated Weight 289 g&grams VIEWPOINT Placenta Details posterior VIEWPOINT Presentation Breech VIEWPOINT Anatomical Region Laterality Modality Body N/A Ultrasound 03/14/2025 10:3 6 AM CDT Impressions 03/18/2025 11:08 AM CDT IUP at 19w 6d for evaluation of anatomy, no completed 1. Biometric measurements corresponded to established dates. 2. Suboptimal views of cord insertion, kidneys, genital, spine 3. The cervical length measured 42.3 mm, which is within normal limits. Narrative Procedure Note Valerie Mckeon MD - 03/18/2025 IMPRESSION: IUP at 19w 6d for evaluation of anatomy, no completed 1. Biometric measurements corresponded to established dates. 2. Suboptimal views of cord insertion, kidneys, genital, spine 3. The cervical length measured 42.3 mm, which is within normal limits. us Valerie Mckeon MD IMG OB US PROCEDURES Khushboo l Result * (ABNORMAL) POCT urinalysis dipstick (02/14/2025 9:47 AM CDT) Color, Urine, POC Yellow Clarity, ur, POC Clear Clear Glucose, ur, POC Negative Negative Ketones, ur, POC Negative Negative Blood, ur, POC Negative Negative Protein, ur, POC Trace(A) Negative Lot Number [id number] Urine 02/14/2025 9:47 AM CDT Neena Camejo NP POINT OF CARE TEST NISHA PIMENTEL Final Result * ThinPrep(R) Imaging Pap and HPV mRNA E6/E7 Reflex HPV 16,18/45 (12/15/2024 3:32 PM CDT) CLINICAL INFORMATION: [facility] Comment:None given LMP [facility] Comment:NONE GIVEN Previous Pap [facility] Comment:NONE GIVEN Prev. Bx [facility] Comment:NONE GIVEN SOURCE: [facility] Comment:None given Pap, specimen adequacy [facility] Comment: Satisfactory for evaluation. Endocervical/transformation zone component present. Age and/or menstrual status not provided HPV interp [facility] Comment: Cytology Results: Negative for intraepithelial lesion or malignancy. COMMENTS [facility] Comment: This Pap test has been evaluated with computer assisted technology. Industrial Electrician Juan Pablo [facility] Comment: EzequielXD, CT(ASCP) CT Screening Location: [address] [address] Comment [facility] Comment: EXPLANATORY NOTE: The Pap is a screening test for cervical cancer. It is not a diagnostic test and is subject to false negative and false positive results. It is most reliable when a satisfactory sample, regularly obtained, is submitted with relevant clinical findings and history, and when the Pap result is evaluated along with historic and current clinical information. Human papillomavirus RNA, High Risk E6/E7 Not Detected Not Detected [facility] Comment: Methodology: Harness Mender-Mediated Amplification This assay detects E6/E7 viral messenger RNA (mRNA) from 14 high-risk HPV types (16,18,31,33,35,39,45,51,52,56,58,59,66,68). Cervical sources are required for HPV testing. If a vaginal source from a patient who has had a total hysterectomy with removal of cervix was submitted, please contact the testing laboratory for alternative testing options. For additional information, please refer to http://education.BPL Global/faq/JFW680p0 (This link if provided for information/ educational purposes only.) Swab 12/15/2024 3:32 PM CDT 12/16/2024 11:39 PM CDT Neena Camejo NP LAB CYTOLOGY ORDERABLES Final Result Performing Organization Address City/[facility] Co de Phone Number [facility] [address] [place] [address] * Hepatitis C antibody Blood (12/15/2024 3:14 PM CDT) Hep C Ab NON-REACTI VE NON-REACT SRINI [email or web address] Comment: HCV antibody was non-reactive. There is no laboratory evidence of HCV infection. In most cases, no further action is required. However, if recent HCV exposure is suspected, a test for HCV RNA (test code 70502) is suggested. For additional information please refer to http://[employer]/faq/VUK59c1 (This link is being provided for informational/ educational purposes only.) Blood 12/15/2024 3:14 PM CDT 12/15/2024 3:15 PM CDT Neena Camejo NP LAB MICROBIOLOGY - GENE RAL ORDERABLES Final Result Performing Organization Address City/[facility]/ZIP Co de Phone Number [facility] [address] [place] [address] from Last 3 Months or Most Recently Relevant to Health Maintenance Insurance [facility] PL[employer] [facility] [employer] Care Teams Computer Applications Developer Relationship Specialty Start Date End Date Unknown, Notinfile PCP - General 08/11/18 Kanika Douglas MD [address] [place] [address] [place] [address] Consulting Physician Obstetrics and Gynecology 10/26/18 Valerie Mckeon MD [address] [place] [address] Consulting Physician Obstetrics and Gynecology 02/27/21
--- OUTSIDE RECORDS SUMMARY | 2025-05-05 09:11 | XMS_ITS | Clinical Summary ---
Author Organization [facility] Address [address] [place] [address] Phone Care Team Providers Care [employer] Name Role Phone Unavailable Primary Care Provider Unavailabl e Allergies Active Allergy Reactions Criticality Noted Date Comments Erythromycin Shortness of Breath/Wheezing High 04/25 Penicillins Rash Medium 04/25/2020 Medications vit-iron fumarate-fa (RUDY ) 28 mg iron- 800 mcg Tablet Take 1 Tablet by mouth daily. Active acetaminophen (TYLENOL) 325 mg tablet Take 2 Tablets (650 mg) by mouth every 6 hours as needed for Pain, Mild or Other (See Comment) (See admin instructions). 0 Active ibuprofen (MOTRIN) 600 mg tablet Take 1 Tablet (600 mg) by mouth every 6 hours as needed for Pain, Mild or Other (See Comment) (for pain secondary to inflammation). 0 Active acetaminophen (TYLENOL) 325 mg tablet Take 2 Tablets (650 mg) by mouth every 6 hours as needed for Other (See Comment) (See admin instructions). 3 Active ibuprofen (MOTRIN) 600 mg tablet Take 1 Tablet (600 mg) by mouth every 6 hours. 3 Active Active Problems Problem Noted Date Diagnosed Date Encounter for induction of labor 05/14/2023 Post-dates 05/14/2023 Non-reassuring heart r ate or rhythm affecting management of mother 05/14/2023 Normal labor 07/06/2020 Threatened labor at term 07/04/2020 Immunizations Immunization Administration Dates Next Due (ADACEL/BOOSTRIX)(10 YR UP) TDAP VACCINE, 0.5ML, IM 03/12/2023,05/16/2020 (M-M-R II/PRIORIX)(12 MO UP) MEASLES, MUMPS AND RUBELLA VIRUS VACCINE, 0.5 ML IM/SUBCUT 07/08/2020 Influenza Seasonal Unspecified Formulation IM Rho (D) IMMUNE GLOBULIN 1,500 UNIT(300 MCG) INJE CTION 04/05/2020 Family History Medical History Relation Name Comments No Known Problems Mother Relation Name Status Comments Mother Alive Social History Tobacco Use Types Packs/Day Years Used Date Smoking Tobacco: Never Smokeless Tobacco: Never Alcohol Use Standard Drinks/Week Comments Not Currently 0 (1 standard drink = 0.6 oz pur e alcohol) Feeling Safe Answer Date Recorded Are you in a relationship wi th someone who hurts you emotionally and/or physically? No 05/13/2023 Comments No Sex and Gender Information Value Date Recorded Sex Assigned at Not on file Legal Sex Female 12:29 PM CDT Gender Identity Not on file Sexual Orientation Not on file Last Filed Vital Signs Vital Sign Reading Time Taken Comments Blood Pressure 119/81 05/15/2023 7:45 AM CDT Pulse 78 05/15/2023 7:45 AM CDT Temperature 36.4 C (97.5 F) 05/15/2023 7:45 AM CDT Respiratory Rate 18 05/15/2023 7:45 AM CDT Oxygen Saturation 98% 05/15/2023 7:45 AM CDT Inhaled Oxygen Concentration - - Weight 73.9 kg (163 lb) 05/13/2023 11:36 AM CDT Height 172.7 cm (5' 8) 05/13/2023 11:47 AM CDT Body Mass Index 24.78 05/13/2023 11:36 AM CDT Plan of Treatment Health Maintenance Due Date Last Done Comments HEPATITIS B VACCINES (1 of 3 - 19+ 3-dose series) 2009 HPV/Cotest (21-29) 2011 HPV VACCINES (1 - 3-dose SCDM series) 2017 CERVICAL CANCER SCREENING 2020 HPV/Cotest (30-65) 2020 PAP SMEAR 2020 INFLUENZA VACCINE (#1) 2025 06/13/2020 DTAP/TDAP/TD VACCINES (3 - Td or Tdap) 03/12/2033, 05/16/2020 Insurance Advance Directives For more information, please contact: [phone] * Full Code (Latest Code Status on File) Date Activated Date Inactivated Comments 05/14/2023 10:22 AM 05/15/2023 1:39 PM * Full Code Date Activated Date Inactivated Comments 05/13/2023 2:02 PM 05/14/2023 10:22 AM * Full Code Date Activated Date Inactivated Comments 07/06/2020 4:25 PM 07/08/2020 1:26 PM * Full Code Date Activated Date Inactivated Comments 07/06/2020 3:28 AM 07/06/2020 4:24 PM * Full Code Date Activated Date Inactivated Comments 07/04/2020 9:12 AM 07/04/2020 4:43 PM
--- NOTE | 2025-05-05 09:26 | ED.EAR ---
HPI - Ear Problem General Chief complaint: Ear Stated complaint: R Clogged ear Time Seen by Provider: 05/05/25 09:20 Source: patient Mode of arrival: ambulatory Limitations: no limitations History of Present Illness HPI Narrative: Mayte is a 34-year-old female patient presenting to the clinic today with complaints of feeling as though she is has some pressure and right ear feeling clogged x1 week. States she has use of [id number]-[id number] ear wax remover without relief. Denies any pain in the ear. No drainage. Denies any fevers, chills, body aches. Patient is 27 weeks . Related Data Home Medications ?Medication ?Instructions ?Recorded ?Confirmed ?Last Taken ?Type docosahexaenoic acid 200 mg mg PO 06/03/23 07/18/24 Unknown History capsule ( DHA) ferrous sulfate 325 mg (65 mg 325 mg PO DAILY 05/05/25 05/05/25 Unknown History iron) tablet (FeroSul) magnesium glycinate 100 mg (as 100 mg PO DAILY 05/05/25 05/05/25 Unknown History glycinate) tablet (Mag Glycinate) pantoprazole 40 mg tablet,delayed mg PO 05/05/25 Unknown History release Allergies Allergy/AdvReac Type Severity Reaction Status Date / Time erythromycin base Allergy Severe STOPS Verified 05/05/25 09:19 BREATHING Penicillins Allergy Mild RASH Verified 05/05/25 09:19 Review of Systems Review of Systems: Pertinent positives per HPI. Patient denies any fever, chills, rash, headache, visual changes, dizziness, cough, runny nose, sore throat, shortness of breath, chest pain, palpitations, nausea, vomiting, diarrhea, constipation, abdominal pain, or any urinary issues. [facility] Past Medical History Medical History Dizziness Anxiety Anemia Seasonal allergies Mass of left hand Rash and nonspecific skin eruption Weight loss Encounter to establish care Wellness examination Hx of gastric ulcer GERD (gastroesophageal reflux disease) (Unknown) Surgical History Surgical History Hx of adenoidectomy Family History Family History Father Hypertension Mother Asthma Sibling Asthma Grandparent Asthma Lung cancer Grandparent Diabetes mellitus Social History Social History Smoking status: Never smoker Alcohol intake: never Drinks per week: 2 Alcohol use details: 1-2 beers per week Substance use: never Lack of Transportation: No Lack of Food: Never True Current Housing: I Have Housing Concerned About Future Housing: No Difficulty Paying Gas/Electric Bills: No Difficulty Paying for Meds: No Currently Unemployed: No Education: Bachelor's Degree Difficulty w/ Childcare or Family Care: No Spiritual care concerns: No Comments At the time of my signature, I reviewed and agree with the nursing past medical, surgical, social, and family history. There is no relevant family history pertinent to the patient complaint. Exam Narrative: General: Well-developed, well nourished, in no apparent distress Head: Normocephalic, atraumatic Eyes: Pupils equally round and reactive to light bilaterally, EOM intact, sclera and conjunctive clear, no discharge, lids normal Ears: Foreign body in the right posterior ear canal, Debrox ear drops were instilled, ear irrigation was performed, and cotton-tip was removed with irrigation, left TM intact and clear, ear canals clear, no drainage, right TM bulging, red, intact, right ear canal red and swollen, grossly hearing normal. Nose: Nares patent, no discharge, no inflammation, no sinus tenderness. Mouth: Oropharynx without lesions or masses, good dentition, MMM. Neck: Supple, trachea midline, no enlargement of anterior or posterior cervical nodes, no thyroid masses or goiter palpable. Cardio: Regular rate and rhythm, s1 and s2 normal, no murmur appreciated. Resp: Clear to auscultation bilaterally anteriorly and posteriorly, no rhonchi, rales, wheezing or rubs Course Course Emergency Course: Portions of this record may have been created with voice recognition software. Level of Care: Express Care Visit Vital Signs Vital signs: Vital Signs Temperature 36.2 C L 05/05/25 09:06 Pulse Rate 85 05/05/25 09:06 Respiratory Rate 18 05/05/25 09:06 Blood Pressure 116/67 05/05/25 09:06 Pulse Oximetry 100 05/05/25 09:06 Oxygen Delivery Room Air 05/05/25 09:06 Temperature 36.2 C L 05/05/25 09:06 Pulse Rate 85 05/05/25 09:06 Respiratory Rate 18 05/05/25 09:06 Blood Pressure 116/67 05/05/25 09:06 Pulse Oximetry 100 05/05/25 09:06 Oxygen Delivery Room Air 05/05/25 09:06 Vital signs reviewed Medical Decision Making MDM Narrative Medical decision making narrative: At the time of visit patient is resting comfortably on the exam table. Patient appears to be nontoxic. Complaints of feeling as though she is has some pressure and right ear feeling clogged x1 week. States she has use of [id number] ear wax remover without relief. Denies any pain in the ear. No drainage. Denies any fevers, chills, body aches. Patient is 27 weeks . On exam patient has white cotton-tipped to the right posterior ear canal. Debrox ear drops were instilled as we initially thought it was wax. Irrigation was performed and cotton tip was flushed out of the ear canal. TM intact, or red, bulging and posterior right ear canal is red and swollen. Plan: Patient has had this feels swallow foreign body removal of the right ear canal, has right otitis media and right otitis externa. Prescription for cefdinir and ofloxacin ear drops was sent to the pharmacy. Patient has history of penicillin rash when she was a baby. 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 Patient is unsure if she has ever had cefdinir before. Explained to the patient that there is a 10% chance that she may have a cross sensitivity reaction from the cefdinir. Will send in the prescription for cefdinir and signs and symptoms of allergy response was reviewed and she voiced understanding. If she develops rash she should discontinue the medication intake Benadryl for her symptoms. If she develops any difficulty breathing, swallowing, chest pain, shortness of breath she needs to go the emergency room immediately. Supportive measures were discussed with the patient and they voiced understanding discharge instructions and agrees to treatment plan. Return precautions reviewed Differential Diagnosis Differential Diagnosis: Otitis media, otitis sternum eustachian tube dysfunction, cerumen impaction, upper respiratory infection, serous otitis Vital Signs Vital Signs: Vital Signs Temperature 36.2 C L 05/05/25 09:06 Pulse Rate 85 05/05/25 09:06 Respiratory Rate 18 05/05/25 09:06 Blood Pressure 116/67 05/05/25 09:06 Pulse Oximetry 100 05/05/25 09:06 Oxygen Delivery Room Air 05/05/25 09:06 Temperature 36.2 C L 05/05/25 09:06 Pulse Rate 85 05/05/25 09:06 Respiratory Rate 18 05/05/25 09:06 Blood Pressure 116/67 05/05/25 09:06 Pulse Oximetry 100 05/05/25 09:06 Oxygen Delivery Room Air 05/05/25 09:06 Discharge Plan Discharge Clinical Impression: Foreign body in ear Qualifiers: Encounter type: initial encounter Laterality: right Qualified Code(s): T16.1XXA - Foreign body in right ear, initial encounter Otitis externa Qualifiers: Otitis externa type: diffuse Chronicity: acute Laterality: right Qualified Code(s): H60.311 - Diffuse otitis externa, right ear Otitis media Qualifiers: Otitis media type: suppurative Chronicity: acute Laterality: right Recurrence: non-recurrent Spontaneous tympanic membrane rupture: without spontaneous rupture Qualified Code(s): H66.001 - Acute suppurative otitis media without spontaneous rupture of ear drum, right ear Patient Disposition: Home Condition: Stable Instructions: Antibiotic Form, Swimmer's Ear (GEN), Ear Foreign Body (ED), Ear Infection (ED) Additional Instructions: Debrox 5 drops was instilled into the right ear canal Ear irrigation was performed in the clinic today successfully Take any prescribed medications only as directed-ofloxacin and amoxicillin Tylenol/motrin as needed for pain May use heating pad to alleviate pain Avoid bottle propping if ear infection in . If you get recurrent ear infections it may be warranted to follow up with ENT. Follow up with your PCP in 3-5 days if symptoms persist. Patient Language: Sami Prescriptions: New ofloxacin 0.3 % drops 5 drp otic (ear) BID 7 Days Qty: 5 0RF cefdinir 300 mg capsule 300 mg PO Q12H 7 Days Qty: 14 0RF No Action pantoprazole 40 mg tablet,delayed release (DR/EC) PO Mag Glycinate 100 mg tablet 100 mg PO DAILY ferrous sulfate [FeroSul] 325 mg (65 mg iron) tablet 325 mg PO DAILY DHA 200 mg capsule PO albuterol sulfate 90 mcg/actuation HFA aerosol inhaler 1 inh inhalation Q4H PRN (Reason: shortness of breath or wheezing) Qty: 8.5 2RF Follow-up/Referrals: Kallie Chew NP [Primary Care Provider, Family Practice] Time of Disposition: 10:13 Quality NIHSS Nursing Documentation ED NIHSS nursing documentation: reviewed/agree
[2025-05-05] MEDS: CARBAMIDE PEROXIDE 6.5% OT SOLN 15 ML BTL 5 DROP RIGHT EAR (09:29)
[2025-05-05] MEDS: HYDROGEN PEROXIDE 3% SOLN(*SP) 473 ML BOTTLE 30 ML IRRIGATION (09:53)
== END 2025-05-05 10:17 | disposition home or self-care (01) ==
PROVIDERS: Emergency Provider Nurse Practitioner Family; PCP Nurse Practitioner Family
DX: T16.1XXA Foreign body in right ear, initial encounter (principal); H60.311 Diffuse otitis externa, right ear; H66.001 Acute suppurative otitis media without spontaneous rupture of ear drum, right ear; Z79.899 Other long term (current) drug therapy; W44.9XXA Unspecified foreign body entering into or through a natural orifice, initial encounter
CPT/HCPCS: 99213; A9270; G0463

== ENCOUNTER 2025-05-12 17:28 | Emergency (ER) | payer OTHER, SELFPAY ==
--- OUTSIDE RECORDS SUMMARY | 2025-05-12 17:30 | XMS_ITS | Clinical Summary ---
Author Organization [facility] Address [address] [place] [address] Phone Care Team Providers Care Yard Brakeman Name Role Phone Unavailable Primary Care Provider [...] Advance Directives For more information, please contact: [phone] * Full Code (Latest Code Status on [...]
--- OUTSIDE RECORDS SUMMARY | 2025-05-12 17:30 | XMS_ITS | Clinical Summary ---
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 Traffic Controller Center Name Role Phone Unknown, Notinfile Primary Care [...] total) by mouth daily 90 tablet 1 5 Active ofloxacin (OCUFLOX) 0.3 % ophthalmic solution Administer into affected ear(s) 5 Active cefdinir (OMNICEF) 300 mg capsule Take 1 capsule (300 mg total) by mouth 5 Active Hospital, Clinic, or Other Facility Administered Medication Ordered Dose Route Frequency Start Date End Date Status Rho(D) immune globulin (HyperRHO S/D, RhoGAM) injection 300 mcgIndications:Prevention of Alloimmunization at 28 Weeks Gestation 300 mcg IM Once 05/10/2025 05/10/2025 Ended Active Problems Problem Noted Date Diagnosed Date Abnormal Pap smear of cervix 02/28/2021 Overview (02/28/2021): 08/2020 ASCUS +HrHPV neg 02/2019 ASCUs +HrHPV neg / Estimated Date of Delivery Comme nts Yes 08/02/2025 Based on last me nstrual period of 10/26/2024 (Exact Date) Encounters Date Type Department Care Team Description 05/10/2025 2:10 PM CDT Office Visit [facility] [phone] Neena Camejo NP 28 weeks gestation of (Primary Dx); Rh negative state in antepartum period, third trimester; Anemia during in third trimester 05/10/2025 1:55 PM CDT Ancillary Procedure [facility] [phone] 23 weeks gestation of ; Encounter for follow-up ultrasound of anatomy 04/28/2025 Results Follow-Up [facility] [place] [phone] Valerie Mckeon MD CBC with auto differential, RPR Titer Blood, GTT 50gm 1hr gestational screen, Additional followed-up results: 3 04/13/2025 10:45 AM CDT Office Visit [facility] [phone] Valerie Mckeon MD care, subsequent , third trimester (Primary Dx); 24 weeks gestation of 04/06/2025 11:25 AM CDT Office Visit [facility] [place] [phone] Neena Camejo NP 23 weeks gestation of (Primary Dx); Encounter for follow-up ultrasound of anatomy; Subchorionic hematoma in first trimester, fetus 1 of multiple gestation 04/06/2025 10:55 AM CDT Ancillary Procedure [facility] [phone] Suspected damage to fetus from disease in mother, antepartum condition, single or unspecified fetus 03/18/2025 Telephone [facility] [phone] Lisa Parra DO 03/14/2025 10:25 AM CDT Ancillary Procedure [facility] [phone] Screening, , for anatomic survey 02/14/2025 9:40 AM CDT Office Visit [facility] [place] [phone] Neena Camejo, MCKENZIE 15 weeks gestation of (Primary Dx); Hyperemesis [...] on file 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 Did great! natural. 05/14/23 SVJohn HK@41.1wks, MIL. GBS pos- Ancef. No lac. Epidural. Summary Episode Dates Number of Fetuses Estimated Date of Delivery 12/15/2024 - Present (05/12/2025) 08/02/2025 (set by Neena Camejo NP on 12/15/2024 based on Last Menstrual Period on 10/26/2024 (Exact Date)) Dating Summary Based On MELISSA GA Diff Last Menstrual Period on 10/26/2024 (Exact Date) 08/02/2025 Working Vitals Pregravid Weight Height TWG (As of 05/12/2025) Pregrav id BMI 170.2 cm (5' 7.01) Notes Progress Notes - Office Visi t - 05/10/2025 - GA:28w0d 05/10/2025 - 28w0d - Minerva Shi Patient received 300mcg RhoGam in R glute. Patient tolerated well and will call the office if she has any questions or concerns. 05/10/2025 - 28w0d - Neena Camejo NP Pt here for visit. 28.0 weeks -rh negative, rhogam today -passed 1 hr gtt, anemia, doing well with iron supplement - growth 16% last visit, repeat growth today, EFW 18%, will recheck growth in 4 weeks -has Ped. Good fm. Reviewed NATASHA. No lof or vb. Rare tightenings. PTLIG -recommend flu and Tdap RTO 4 weeks/sooner prn Progress Notes - [...] - 12/15/2024 - GA:7w1d 12/15/2024 - 7w1d - Neena Camejo NP Initial OB Visit Subjective: Mayte Garcia [...] Clinician: Valerie Mckeon MD Obstetric Comments 07/06/20 SVDFgisellef HK@41wks, 8-1lbs. Did great! natural. 05/14/23 SVJimimef HK@41.1wks, MIL. GBS pos- Ancef. No lac. Epidural. 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 REVIEW OF SYSTEMS: Review [...] affect Neurologic: awake/alert, no focal deficits A auto electrical technician was offered for this sensitive examination, but the patient requested that a auto electrical technician not be present. Assessment: Patient is a [...] Sign Reading Time Taken Comments Blood Pressure 134/80 05/10/2025 2:20 PM CDT Pulse - - Temperature 36.5 C (97.7 F) 04/25/2020 3:39 PM CDT Respiratory Rate - - Oxygen Saturation - - Inhaled Oxygen Concentration - - Weight 69.8 kg (153 lb 12.8 oz) 05/10/2025 2:20 PM CDT Height 170.2 cm (5' 7.01) 05/10/2025 2:20 PM CD T Body Mass Index 24.08 05/10/2025 2:20 PM CDT Plan of Treatment Health Maintenance Due [...] Procedure Name Priority Date/Time Associated Diagnosis Comments POCT URINALYSIS DIPSTICK Routine 05/10/2025 2:29 PM CDT 28 weeks gestation of US OB FOLLOW UP Schedule Routine, Read Routine (OP Routine) 05/10/2025 1:48 PM CDT 23 weeks gestation of Encounter for follow-up ultrasound of anatomy FERRITIN Routine 04/26/2025 9:34 AM CDT care, [...] Recently Relevant to Health Maintenance Results * POCT urinalysis dipstick (05/10/2025 2:29 PM CDT) Glucose, ur, POC Negative Negative Ketones, ur, POC Negative Negative Blood, ur, POC Negative Negative Protein, ur, POC Negative Negative Lot Number [id number] Urine 05/10/2025 2:29 PM CDT Neena Camejo NP POINT OF CARE TEST ORDJeannie PIMENTEL Final Result * US Ob Follow Up (05/10/2025 1:48 PM CDT) Fetus# Fetus1 VIEWPOINT Estimated Weight 1,066 g&grams VIEWPOINT Placenta Details posterior VIEWPOINT Presentation Transverse Lie VIEWPOINT Anatomical Region Laterality Modality Abdomen N/A Ultrasound 05/10/2025 2:02 PM CDT Impressions 05/10/2025 2:29 PM CDT Interval growth is appropriate at 18%, transverse lie, DON 12.4cm. Narrative Procedure Note Valerie Mckeon MD - 05/10/2025 IMPRESSION: Interval growth is appropriate at 18%, transverse lie, DON 12.4cm. Neena Camejo BULK MAIL TECHNICIAN IMG OB US PROCEDURES Fi nal Result * GTT 50gm 1hr gestational screen (04/26/2025 9:34 AM CDT) Glucose, gestational screen, pl 90 <140 mg/dL [facility] Blood 04/26/2025 9:34 AM CDT 04/26/2025 9:36 AM CDT Valerie Mckeon MD LAB BLOOD ORDERABLES Khushboo l Result [facility] [address] [place] [address] * RPR Titer Blood (04/26/2025 9:34 AM CDT) RPR NON-REACTI VE NON-REACTI VE [facility] Comment: No laboratory evidence of syphilis. If recent exposure is suspected, submit a new sample in 2-4 weeks. Blood 04/26/2025 9:34 AM CDT 04/26/2025 9:36 AM CDT Valerie Mckeon MD LAB MICROBIOLOGY - GENERA L ORDERABLES Final Result [facility] [address] [address] [address] [address] * (ABNORMAL) CBC with auto differential (04/26/2025 [...] ORDERABLES Khushboo l Result Performing Organization Address [facility] Co de Phone Number [facility] [address] [place] [address] * ABO/Rh (04/26/2025 9:34 AM CDT) Pathologist [facility] ABO typing O [facility] Rho(D) typing RH(D) NEGATIVE [facility] Comment: For additional information, please refer to http://education.ZoopShop/faq/CRA729 (This link is being provided for informational/ educational purposes only.) Blood 04/26/2025 9:34 AM CDT 04/26/2025 9:36 AM CDT Valerie Mckeon MD LAB BLOOD BANK TEST ORDER JAIME Final Result Performing Organization Address [facility] de Phone Number [facility] [address] [place] [address] * Antibody screen (04/26/2025 9:34 AM CDT) [facility] Antibody screen NO ANTIBODIES DETECTED [facility] Comment: Reference range No antibodies detected This assay is a screening test for the detection of red blood cell antibodies. The test is not to be used for pretransfusion screening or for the medical management of an alloimmunized . Blood 04/26/2025 9:34 AM CDT 04/26/2025 9:36 AM CDT Valerie Mckeon MD LAB BLOOD BANK TEST ORDER JAIME Final Result Performing Organization Address [facility] de Phone Number [facility] [address] [place] [address] * (ABNORMAL) Ferritin (04/26/2025 9:34 AM CDT) Pathologist [facility] Ferritin 13(L) 16 - 154 ng/mL [facility] Blood 04/26/2025 9:34 AM CDT 04/26/2025 9:36 AM CDT Valerie Mckeon MD LAB BLOOD ORDERABLES Khushboo l Result [facility] [address] [facility] [place] [address] * (ABNORMAL) POCT urinalysis dipstick (04/13/2025 11:02 AM CDT) Color, Urine, POC Yellow Clarity, ur, POC Clear Clear Glucose, ur, POC Negative Negative Ketones, ur, POC Negative Negative Blood, ur, POC Negative Negative Protein, ur, POC Trace(A) Negative Lot Number [id number] Urine 04/13/2025 11:0 2 AM CDT Valerie Mckeon MD POINT OF CARE TEST ORDERA BLES Final Result * POCT urinalysis dipstick (04/06/2025 11:42 AM CDT) Pathologist [facility] Glucose, ur, POC Negative Negative Ketones, ur, POC Negative Negative Blood, ur, POC Negative Negative Protein, ur, POC Negative Negative Lot Number [id number] Urine 04/06/2025 11:4 2 AM CDT Neena Caemjo NP POINT OF CARE TEST ORDE RABLES [...] Interval growth is appropriate. No anomalies visualized. Result [facility] Lisa Parra IMG OB US PROCEDURES Fi [...] 42.3 mm, which is within normal limits. Result [facility] Valerie Mckeon MD IM OB US PROCEDURES Khushboo l Result * (ABNORMAL) POCT urinalysis dipstick (02/14/2025 9:47 AM CDT) Color, Urine, POC Yellow Clarity, ur, POC Clear Clear Glucose, ur, POC Negative Negative Ketones, ur, POC Negative Negative Blood, ur, POC Negative Negative Protein, ur, POC Trace(A) Negative Lot Number [id number] Urine 02/14/2025 9:47 AM CDT Result [facility] Neena Camejo NP POINT OF CARE TEST NISHA PIMENTEL Final Result * ThinPrep(R) Imaging Pap and HPV mRNA E6/E7 Reflex HPV 16,18/45 (12/15/2024 3:32 PM CDT) CLINICAL INFORMATION: [facility] Comment:None given LMP [facility] Comment:NONE GIVEN Previous Pap [facility] Comment:NONE GIVEN Prev. Bx [facility] Comment:NONE GIVEN SOURCE: [facility] Comment:None given Pap, specimen adequacy [facility] Comment: Satisfactory for evaluation. Endocervical/transformation zone component present. Age and/or menstrual status not provided HPV interp [facility] Comment: Cytology Results: Negative for intraepithelial lesion or malignancy. COMMENTS [facility] Comment: This Pap test has been evaluated with computer assisted technology. Negative Turner Apprentice Juan Pablo [facility] Comment: JXD, CT(ASCP) CT Screening Location: [address] [address] Comment [facility] Comment: EXPLANATORY NOTE: The Pap is a [...] High Risk E6/E7 Not Detected Not Detected [facility] Comment: Methodology: Resident Program Specialist-Mediated Amplification This assay detects E6/E7 viral messenger RNA (mRNA) from 14 high-risk HPV types (16,18,31,33,35,39,45,51,52,56,58,59,66,68). Cervical sources are required for HPV testing. If a vaginal source from a patient who has had a total hysterectomy with removal of cervix was submitted, please contact the testing laboratory for alternative testing options. For additional information, please refer to http://education.Provenance/faq/EGB804q4 (This link if provided for information/ educational purposes only.) Swab 12/15/2024 3:32 PM CDT 12/16/2024 11:39 PM CDT Neena Camejo NP LAB CYTOLOGY ORDERABLES Final Result [facility] [address] [place] [address] * Hepatitis C antibody Blood (12/15/2024 3:14 PM CDT) Hep C Ab NON-REACTI VE NON-REACT SRINI [facility] Comment: HCV antibody was non-reactive. There is no laboratory evidence of HCV infection. In most cases, no further action is required. However, if recent HCV exposure is suspected, a test for HCV RNA (test code 31573) is suggested. For additional information please refer to http://education.Provenance/faq/VBN29x0 (This link is being provided for informational/ educational purposes only.) Blood 12/15/2024 3:14 PM CDT 12/15/2024 3:15 PM CDT Neena Camejo NP LAB MICROBIOLOGY - GENE RAL ORDERABLES Final Result [facility] [address] [place] [address] from Last 3 Months or Most Recently Relevant to Health Maintenance Insurance [facility] CHOICE PLUS [facility] CHOICE PLUS Member Subscriber Plan / Payer (Ef fective 2024-Present) Name:Mayte Garcia Relation to Subscriber:Self Name:Mayte Garcia Payer ID:[id number] (NAIC) Type:[facility] HMO/PPO Address: [address] [address] Care Teams Air Traffic Controller Center Relationship Specialty Start Date End Date Unknown, Notinfile PCP - General 08/11/18 Kanika Douglas MD [address] [place] [address] [place] [address] Consulting Physician Obstetrics and Gynecology 10/26/18 [place] [address] [place] [address] Consulting Physician Obstetrics and Gynecology 02/27/21
--- OUTSIDE RECORDS SUMMARY | 2025-05-12 17:32 | XMS_ITS | Encounter Summary ---
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 Gender Identity Female 02/26/2021 8:50 AM CDT Sexual Orientation Not on file documented as of this encounter Plan of Treatment Not on file documented as of this encounter Visit Diagnoses Not on filedocumented in this encounter Care Teams Headhunter Relationship Specialty Start Date End Date Unknown, Chantal PCP - General 08/11/18 Kanika Douglas MD [facility] [address] [place] [address] Consulting Physician Obstetrics and Gynecology 10/26/18 [place] [address] [place] [address] Consulting Physician Obstetrics and Gynecology 02/27/21 documented as of this encounter
[2025-05-12 17:35] VITALS: BP 118/67; PULSE 83; RESP 18; TEMP 36.3; O2SAT 100
--- NOTE | 2025-05-12 18:04 | ED_ITS ---
HPI - Ear Problem General Chief complaint: Ear Stated complaint: R ear pain Time Seen by Provider: 05/12/25 17:55 Source: patient, RN notes reviewed and old records reviewed Mode of arrival: ambulatory Limitations: no limitations History of Present Illness HPI Narrative: 34 year old female who presents to [facility] who is 28 weeks with complaints of right ear pressure, hearing is muffled and feeling wet. Patient was treated on 05/05/2025 for ear infection and was irrigated for foreign body with piece of cotton tip stuck in ear. Patient has been using ear drops and also taking Cefdin with 2 tabs of antibiotic left. Patient reports no fevers. Patient reports that ear felt better for a couple of days and discomfort and symmptoms then increasing. MD Complaint: ear pain and decreased hearing Location: right ear Severity: moderate Treatment prior to arrival: other (ear drops and on antibiotic) Related Data Home Medications ?Medication ?Instructions ?Recorded ?Confirmed ?Last Taken ?Type docosahexaenoic acid 200 mg mg PO 06/03/23 07/18/24 Un known History capsule ( DHA) ferrous sulfate 325 mg (65 mg 325 mg PO DAILY 05/05/25 05/05/25 Unknown History iron) tablet (FeroSul) magnesium glycinate 100 mg (as 100 mg PO DAILY 5 05/05/25 Unknown History glycinate) tablet (Mag Glycinate) pantoprazole 40 mg tablet,delayed mg PO 05/05/25 Unkn own History release Allergies Allergy/AdvReac Type Severity Reaction Status Date / Time erythromycin base Allergy Severe STOPS Verified 05/12/25 17:30 BREATHING Penicillins Allergy Mild RASH Verified 05/12/25 17:30 Review of Systems Review of Systems: CONSTITUTIONAL: Denies fever, chills, or sweats. CARDIOVASCULAR: Denies chest pain, palpitations, or edema. RESPIRATORY: Denies cough or dyspnea. SKIN: Denies rash or itching. Denies lacerations or abrasions MUSCULOSKELETAL: Reports right ear feels clogged with pressure and feels wet NEUROLOGIC: Denies numbness, or weakness. All systems reviewed & are unremarkable except as noted in HPI and below PMFSH Past Medical History Medical History Dizziness Anxiety Anemia Seasonal allergies Mass of left hand Rash and nonspecific skin eruption Weight loss Encounter to establish care Wellness examination Hx of gastric ulcer GERD (gastroesophageal reflux disease) (Unknown) Surgical History Surgical History Hx of adenoidectomy Family History Family History Father Hypertension Mother Asthma Sibling Asthma Grandparent Asthma Lung cancer Grandparent Diabetes mellitus Social History Social History (Updated 05/13/25 @ 18:28 by Ashleigh Bailey NP) Smoking status: Never smoker Alcohol intake: never Drinks per week: 2 Alcohol use details: 1-2 beers per week none since Substance use: never Lack of Transportation: No Lack of Food: Never True Current Housing: I Have Housing Concerned About Future Housing: No Difficulty Paying Gas/Electric Bills: No Difficulty Paying for Meds: No Currently Unemployed: No Education: Bachelor's Degree Difficulty w/ Childcare or Family Care: No Living arrangements: with family Gender identity (if verbalized by the patient): Female Spiritual care concerns: No Comments At time of signature, agree with nursing past medical, surgical, social and family history. There is no relevant family history pertinent to the presenting complaint Exam Narrative: GENERAL: Well-appearing, well-nourished, and in no acute distress. HEAD: Normocephalic EYES: PERRLA, conjunctivae clear ENT: Nares clear, turbinates edematous and erythematous, clear discharge. Mucous membranes moist. right TM red with white discharge canal red and excoriated Left TM pearly keith with dull light reflex; no tragal tenderness. Oropharynx erythematous without lesions. Tonsils not enlarged and without exudate, no drooling, no hoarseness, no trismus, uvula midline. NECK: Supple. No lymphadenopathy CHEST: Clear to auscultation, breath sounds equal. No wheezing, rhonchi, rales, or stridor. No respiratory distress, speaks in full sentences no cough noted,.SAO2 100% on room air HEART: Regular rate and rhythm. No murmur heard. SKIN: Warm, dry, no rash. NEURO: Alert and oriented x3. PSYCH: Normal mood and affect Course Course Level of Care: [facility] Care Visit Vital Signs Vital signs: Vital Signs Temperature 36.3 C L 05/12/25 17:35 Pulse Rate 83 05/12/25 17:35 Respiratory Rate 18 05/12/25 17:35 Blood Pressure 118/67 05/12/25 17:35 Pulse Oximetry 100 05/12/25 17:35 Oxygen Delivery Room Air 05/12/25 17:35 Temperature 36.3 C L 05/12/25 17:35 Pulse Rate 83 05/12/25 17:35 Respiratory Rate 18 05/12/25 17:35 Blood Pressure 118/67 05/12/25 17:35 Pulse Oximetry 100 05/12/25 17:35 Oxygen Delivery Room Air 05/12/25 17:35 reviewed Medical Decision Making Differential Diagnosis Differential Diagnosis: otitis media, otitis externa, otalgia Medical Records Medical records reviewed: Yes I reviewed the external patient's medical records. Vital Signs Vital Signs: Vital Signs Temperature 36.3 C L 05/12/25 17:35 Pulse Rate 83 05/12/25 17:35 Respiratory Rate 18 05/12/25 17:35 Blood Pressure 118/67 05/12/25 17:35 Pulse Oximetry 100 05/12/25 17:35 Oxygen Delivery Room Air 05/12/25 17:35 Temperature 36.3 C L 05/12/25 17:35 Pulse Rate 83 05/12/25 17:35 Respiratory Rate 18 05/12/25 17:35 Blood Pressure 118/67 05/12/25 17:35 Pulse Oximetry 100 05/12/25 17:35 Oxygen Delivery Room Air 05/12/25 17:35 reviewed Critical Care Time Critical Care Time Critical Care Time: No Discharge Plan Discharge Clinical Impression: Otitis media Qualifiers: Otitis media type: suppurative Chronicity: acute Laterality: right Recurrence: not specified as recurrent Spontaneous tympanic membrane rupture: without spontaneous rupture Qualified Code(s): H66.001 - Acute suppurative otitis media without spontaneous rupture of ear drum, right ear Otitis externa Qualifiers: Otitis externa type: diffuse Chronicity: acute Laterality: right Qualified Code(s): H60.311 - Diffuse otitis externa, right ear Patient Disposition: Home Condition: Stable Instructions: Antibiotic Form, Ear Infection (GEN) Additional Instructions: Increase fluids especially juices and water [id number] cough and cold medicine of your choice for your symptoms Zyrtec Claritin daily Ciprodex to right ear as prescribed heat to the face 20-30 minutes 4-6 times a day for pain Salt water gargles, throat lozenges or throat sprays as desired Antibiotic as directed--finished the medication If your symptoms persist, change or worsen significantly before you can contact your personal physician then please, without delay, go to the emergency department for further evaluation. Follow-up with PCP in 7-10 days or sooner if needed Patient Language: Greek Prescriptions: New ciprofloxacin-dexamethasone 0.3-0.1 % drops,suspension 4 drp EACH EAR Q12H 7 Days Qty: 7.5 0RF cefdinir 300 mg capsule 300 mg PO Q12H Qty: 10 0RF Rx Instructions: has had this medication No Action pantoprazole 40 mg tablet,delayed release (DR/EC) PO Mag Glycinate 100 mg tablet 100 mg PO DAILY ferrous sulfate [FeroSul] 325 mg (65 mg iron) tablet 325 mg PO DAILY ofloxacin 0.3 % drops 5 drp otic (ear) BID 7 Days Qty: 5 0RF DHA 200 mg capsule PO albuterol sulfate 90 mcg/actuation HFA aerosol inhaler 1 inh inhalation Q4H PRN (Reason: shortness of breath or wheezing) Qty: 8.5 2RF Follow-up/Referrals: Samir Singer MD [Primary Care Provider, Family Practice] Time of Disposition: 18:23 Quality Eligio Coma Scale Eyes: Open Verbal: Oriented and Alert Motor: Follows Commands [place] Coma Total Score: 15
== END 2025-05-12 18:26 | disposition home or self-care (01) ==
PROVIDERS: Emergency Provider Registered Nurse; PCP Family Medicine
DX: H66.001 Acute suppurative otitis media without spontaneous rupture of ear drum, right ear (principal); H60.311 Diffuse otitis externa, right ear; K21.9 Gastro-esophageal reflux disease without esophagitis; D64.9 Anemia, unspecified
CPT/HCPCS: 99213; G0463